=== PATIENT | female | born 1985 | race Caucasian/White ===

== ENCOUNTER 2017-05-25 13:45 | Emergency (ER) | payer MEDICARE, OTHER ==
[~2017-05-25] VITALS: Ht 170.2 cm; Wt 83.9 kg
[2017-05-25 13:57] VITALS: BP 115/59
[2017-05-25] MEDS ORDERED: HYDR-971 PO (14:15)
[2017-05-25] MEDS ORDERED: AMOX875T PO (14:15)
--- NOTE | 2017-05-25 14:18 | PHYS DOC ---
General Chief Complaint: DENTAL PROBLEM Stated Complaint: DENTAL BUSTILLO Time Seen by MD: 14:14 Source: patient Exam Limitations: no limitations Problems: History of Present Illness Initial Comments Patient is a 31-year-old female who comes the ED complaining of dental pain. Patient states that she's had chronic issues with her right lower molar however it has worsened recently. She has a hole in it above the gum complains of severe throbbing 10 over 10 pain. No fever chills sweats or myalgias no jaw bone pain. She has insurance and has been trying to find a local dentist that takes her benefits and states she has been unsuccessful. Her vital signs are stable she is afebrile not tachycardic [id number]-[id number] medications are not helping. She continues to smoke cigarettes. Timing/Duration: other Severity: severe Location: dental Prearrival Treatment: over the counter meds Modifying Factors: improves with other Associated Symptoms: tooth pain Allergies: Coded Allergies: No Known Drug Allergies (Unverified , 05/25/17) Past Medical History Medical History: no pertinent history, other (depression, anxiety) Surgical History: noncontributory, other ( section tubal ligation) Social History Smoker: cigarettes Alcohol: none Drugs: none Constitutional: denies chills, denies diaphoresis, denies fever, denies malaise Ears: denies dizziness, denies pain, denies tinnitus Nose: denies clots, denies congestion Mouth: see HPI, denies swelling, denies bloody discharge, denies purulent discharge Throat: denies swelling, denies neck stiffness, denies hoarse, denies painful swallowing, denies difficulty with fluids Respiratory: denies cough, denies shortness of breath Cardiovascular: denies chest pain, denies palpitations Musculoskeletal: denies back pain, denies neck pain Neurological: denies headache, denies numbness, denies paresthesia Physical Exam General Appearance: mild distress Eyes: bilateral eye normal inspection, bilateral eye PERRL, bilateral eye EOMI Nose: normal inspection Mouth/Throat: pharynx normal, other (right lower second molar with an extensive decay at the lateral aspect of the tooth above the gumline there is no gingival swelling purulence or bony tenderness no other intraoral swelling in the airway is widely patent) Neck: non-tender, supple Cardiovascular/Respiratory: normal peripheral pulses, normal breath sounds, no respiratory distress Neurologic/Psychiatric: continuity reader II-XII nml as tested, alert, oriented x 3 Orders, Labs, Meds I discussed the need for the patient to stop smoking. The patient was advised that chronic dental pain will not be further treated in the emergency department , that she must follow-up with a dentist. I pointed her in the direction of the [facility] dental school as well as a [place] however find R believe that somewhere in this will not take her dental insurance. I encouraged her to be vigilant in advocating for her dental care. I discussed signs and symptoms to monitor as well as indications for urgent return to the department. I discussed [id number] prescription medications as well as the need for oral hydration. The patient's questions were answered to her satisfaction and she expressed agreement and understanding with the treatment plan. Departure Time of Disposition: 14:17 Disposition: 01 HOME, SELF-CARE Diagnosis: dental caries, tobaccoism Condition: GOOD Patient Instructions: Dental Abscess, Smoking Cessation Additional Instructions: Please review the patient education materials given by ED staff. Aggressive hydration with Gatorade and water. Stop smoking seek medical assistance if necessary. Uhkl-cad-zohmzyd ibuprofen as needed. Prescription: Amoxicillin, [place] 5 mg Follow-up with a dentist for next available appointment. Return to ED with new or changing symptoms. PARMINDER CHEW DO May 25, 2017 14:18
[2017-05-25] MEDS ORDERED: AMOXICILLIN 250 MG CAPSULE PO ONE (14:45)
[2017-05-25] MEDS ORDERED: HYDROcodone/APAP 7.5/325MG 1 TAB TABLET PO ONE (14:45)
== END 2017-05-25 14:24 | disposition home or self-care (01) ==
LOC: ER 13:45
DX: K02.9 Dental caries, unspecified (principal); F17.210 Nicotine dependence, cigarettes, uncomplicated
CPT/HCPCS: 99283

== ENCOUNTER 2017-06-21 11:27 | Emergency (ER) | payer MEDICARE, OTHER ==
[~2017-06-21] VITALS: Ht 170.2 cm; Wt 83.9 kg
[~2017-06-21 11:27] MED LIST: AMOX875T PO; HYDR-971 PO
[2017-06-21] MEDS ORDERED: HYDR-971 PO (12:23)
--- NOTE | 2017-06-21 12:23 | PHYS DOC ---
Past History Past Medical History: Bipolar, Hypotension Past Surgical History: , Hysterectomy Smoking: Cigarettes Alcohol Use: None Drug Use: None Adult General Chief Complaint Chief Complaint: DENTAL PROBLEM HPI HPI 32-year-old female patient states she had dental abscess drainage and surgery 2 days ago and ran out of her hydrocodone last night and her dentist was not available at the office today and decided to come to ER for pain medication. Patient denies fever and chills, nausea and vomiting, problems with swallowing. Review of Systems Review of Systems Constitutional: Denies fever or chills [] Eyes: Denies change in visual acuity, redness, or eye pain [] HENT: Denies nasal congestion or sore throat , reports tooth pain[] Respiratory: Denies cough or shortness of breath [] Cardiovascular: No additional information not addressed in HPI [] GI: Denies abdominal pain, nausea, vomiting, bloody stools or diarrhea [] : Denies dysuria or hematuria [] Musculoskeletal: Denies back pain or joint pain [] Integument: Denies rash or skin lesions [] Neurologic: Denies headache, focal weakness or sensory changes [] Endocrine: Denies polyuria or polydipsia [] All other systems were reviewed and found to be within normal limits, except as documented in this note. Allergies Allergies Allergies Coded Allergies Type Severity Reaction Last Updated Verified No Known Drug Allergies 05/25/17 No Physical Exam Physical Exam Constitutional: Well developed, well nourished, no acute distress, non-toxic appearance, anxious. [] HENT: Normocephalic, atraumatic, bilateral external ears normal, oropharynx moist, no oral exudates, clean surgical suture in the right lower jaw in area of molar #2 without sign of abscess or infection Eyes: PERRLA, EOMI, conjunctiva normal, no discharge. [] Neck: Normal range of motion, no tenderness, supple, no stridor. [] Cardiovascular:Heart rate regular rhythm, no murmur [] Lungs & Thorax: Bilateral breath sounds clear to auscultation [] Neurologic: Alert and oriented X 3, normal motor function, normal sensory function, no focal deficits noted. [] Psychologic: Anxious Current Patient Data Vital Signs Vital Signs Date Time Temp Pulse Resp B/P (MAP) Pulse Ox O2 Delivery O2 Flow Rate FiO2 06/21/17 11:27 98.3 99 18 96 Room Air EKG EKG [] Radiology/Procedures Radiology/Procedures [] Course & Med Decision Making Course & Med Decision Making Examination of patient in ER showed 32-year-old female patient presented to ER for refill of pain medication after dental surgery 4 days ago. Patient states her doctors available to tomorrow. Plan to give prescription of 4 hydrocodone until she gets to her physician. Patient instructed to quit smoking. Dragon Disclaimer Dragon Disclaimer This electronic medical record was generated, in whole or in part, using a voice recognition dictation system. Departure Departure: Impression: Primary Impression: Dentalgia Additional Impressions: Tobacco abuse Tobacco abuse counseling Disposition: HOME, SELF-CARE (At 1221) Condition: STABLE Referrals: TYLER BOUCHER MD (PCP) Patient Instructions: Toothache-Brief Additional Instructions: Follow-up with your surgeon tomorrow for dental pain Scripts Hydrocodone Bit/Acetaminophen (NORCO 5-325 TABLET) 1 Each Tablet 1 TAB PO PRN Q6HRS Y for PAIN, #4 TAB 0 Refills Prov: DONNIE ORELLANA MD 06/21/17 Problem Qualifiers DONNIE ORELLANA MD Jun 21, 2017 12:23
[2017-06-21 12:30] VITALS: BP 142/80
== END 2017-06-21 12:20 | disposition home or self-care (01) ==
LOC: ER 11:27
DX: K08.89 Other specified disorders of teeth and supporting structures (principal); G89.18 Other acute postprocedural pain; F17.210 Nicotine dependence, cigarettes, uncomplicated; Z98.818 Other dental procedure status; Z71.6 Tobacco abuse counseling
CPT/HCPCS: 99283